=== PATIENT | male | born 1955 | race Caucasian/White ===

== ENCOUNTER → 2016-09-29 | Outpatient (CLI) | payer OTHER ==
[~2016-09-29] MED LIST: AMLO-114 PO; ATOR-22 PO; BEET ROOT PO; BUPR200T2 PO; CLON0.3T PO; CYCL10TA6 PO; DOCU-94 PO; GLUCTAB7 PO; HYDR-4313 PO; LABE1TAB28 PO; LISI20TA3 PO; MELA1TAB5 PO; MULT-506 PO; POTA1TAB PO; RED RICE YEAST PO; TADA20TA PO; TRAM-10 PO; VITAMIN D3 PO; [UNRECOGNIZED DRUG - CODE] PO
[2016-09-29 16:44] LABS: BASO % 0.1 %; BASO ABS # 0.01 K/uL (0-0.2); COMPLETE YES; EOS % 3.1 %; HEMATOCRIT 42.4 % (42-52); IG% 0.1 %; LYMPH ABS # 1.84 K/uL (1.2-3.4); MEAN CELL VOLUME 85.1 fL (80-100); MEAN CORPUSCULAR HEMOGLOBIN 29.3 pg (25-34); MEAN CORPUSCULAR HGB CONC 34.4 g/dl (32-36); MEAN PLATELET VOLUME 10.6 fL (7.4-10.4); MONO % 9.3 %; NEUT % 65.4 %; PLATELET COUNT 185 K/uL (130-400); RED BLOOD COUNT 4.98 M/uL (4.7-6.1); WHITE BLOOD COUNT 8.38 K/uL (4.8-10.8)
[2016-09-29 17:01] LABS: ALT/SGPT 44 U/L (12-78); AST/SGOT 24 U/L (15-37); BLOOD UREA NITROGEN 20 mg/dl (7-18); BUN/CREATININE RATIO 20.1 (10-20); CALCIUM 9.3 mg/dl (8.5-10.1); CARBON DIOXIDE 29 mmol/L (21-32); CHLORIDE 108 mmol/L (98-107); CHOLESTEROL 167 mg/dl (0-200); GLUCOSE 88 mg/dl (70-99); SODIUM 143 mmol/L (136-145)
[2016-09-29 17:03] LABS: ALB/GLOB RATIO 1.4 (0.9-2); ALKALINE PHOSPHATASE 54 U/L (45-117); CHOLESTEROL/HDL RATIO 3.3; HDL CHOLESTEROL 50 mg/dl; LDL CHOLESTEROL CALCULATED 96 mg/dl; TRIGLYCERIDES 106 mg/dl (0-150); VERY LOW DENSITY LIPOPROT CALC 21 mg/dl
== END | disposition home or self-care (01) ==
LOC: C.LABBFT 12:11
PROVIDERS: ATTEND Internal Medicine
DX: Z11.59 Encounter for screening for other viral diseases (principal); E78.5 Hyperlipidemia, unspecified; I10 Essential (primary) hypertension

== ENCOUNTER → 2017-01-19 | Outpatient (CLI) | payer OTHER ==
[~2017-01-19] VITALS: Ht 180.3 cm; Wt 127.4 kg
[2017-01-19 14:03] VITALS: BP 169/99; PULSE 80; Ht 180.3 cm; Wt 127.4 kg
== END | disposition home or self-care (01) ==
LOC: C.NEUR 12:55
PROVIDERS: ATTEND Physician Assistant
DX: G47.33 Obstructive sleep apnea (adult) (pediatric) (principal)

== ENCOUNTER → 2017-01-30 | Outpatient (CLI) | payer OTHER ==
--- NOTE | 2017-02-05 16:42 | POLYSOMNOGRAPH REPORT ---
SLEEP STUDY CLINICAL DATA: A 61-year-old male with BMI of [address] Reyna and Dr[address] Lilliam Arzola with a history of severe sleep apnea dating back to 1997. He was on BIPAP 06/01 until 18 months ago. At that time, his machine began to malfunction and he discontinued use. On the evening of 01/31/2017, a home sleep apnea test was performed using a [place] type III monitor. RECORDING RESULTS: Total recording time was 10 hours. The patient's monitoring time and estimated sleep time was 7.4 hours. RESPIRATORY DATA: Severe sleep apnea was documented. The SANIA was 45. There were 189 obstructive and 8 mixed apneic episodes. There were 138 hypopneic episodes. The longest respiratory event was 149 seconds. OXIMETRY DATA: Significant nocturnal hypoxemia was seen. Oxygen bette was 71%. Mean saturation was 88%. Time below 89% was 218 minutes. HEART RATE DATA: Heart rates ranged from 51-60 beats per minute. SNORING DATA: Snoring was recorded throughout the night. IMPRESSION: Severe obstructive sleep apnea with severe nocturnal hypoxemia with an respiratory event index of 45 with an oxygen bette of 71%. RECOMMENDATIONS: The patient should be considered for a repeat sleep study with CPAP/BiPAP. Reinstitution of BiPAP at his previous settings could also be considered. JOYD
== END | disposition home or self-care (01) ==
LOC: C.NEUR 10:45
PROVIDERS: ATTEND Physician Assistant
DX: G47.33 Obstructive sleep apnea (adult) (pediatric) (principal)

== ENCOUNTER → 2017-02-12 | Outpatient (CLI) | payer OTHER ==
[2017-02-12 13:17] LABS: CHOLESTEROL/HDL RATIO 2.7
== END | disposition home or self-care (01) ==
LOC: C.LABBFT 07:58
PROVIDERS: ATTEND Internal Medicine
DX: E78.5 Hyperlipidemia, unspecified (principal)

== ENCOUNTER 2017-02-13 09:43 | Emergency (ER) | payer OTHER ==
[2017-02-13] VITALS (13 sets, daily range): BP systolic 127–207; BP diastolic 77–125; PULSE 79–89; TEMP 36.4; O2SAT 93–99; Ht 177.8 cm; Wt 126.5 kg
[~2017-02-13] VITALS: Ht 177.8 cm; Wt 126.5 kg
[~2017-02-13 09:43] MED LIST changes: -AMLO-114 PO; -ATOR-22 PO; -BUPR200T2 PO; -CLON0.3T PO; -CYCL10TA6 PO; -HYDR-4313 PO; -LABE1TAB28 PO; -LISI20TA3 PO; -MULT-506 PO; -TADA20TA PO; -TRAM-10 PO
[2017-02-13] MEDS ORDERED: HYDR-4313 PO (10:19)
[2017-02-13] MEDS ORDERED: ATOR-22 PO (10:19)
--- NOTE | 2017-02-13 10:34 | DIAGNOSTIC IMAGING REPORT ---
RIGHT SHOULDER 2 VIEWS CLINICAL HISTORY: Right shoulder injury. FINDINGS: 2 portable views of the right shoulder are obtained. No prior studies are available for comparison at the time of dictation. The skeletal structures appear osteopenic. There is anterior shoulder dislocation. No definite fracture is seen. Productive degenerative change is identified at the acromioclavicular joint. The overlying soft tissues are within normal limits. The visualized right lung parenchyma appears clear. There is atherosclerotic calcification of the thoracic aorta. IMPRESSION: 1. Findings are consistent with anterior shoulder dislocation. 2. No definite fracture is seen. Electronically signed by: David Mccann M.D. 02/13/2017 10:33 AM Dictated Date/Time: 02/13/2017 10:32 AM
[2017-02-13] MEDS ORDERED: FENTANYL CITRATE INJ 50 MCG/1 ML 2 ML VIAL ONE (10:45)
[2017-02-13] MEDS ORDERED: PROPOFOL IV EMULSION 10 MG/ML 20 ML VIAL IV ONE (11:03)
[2017-02-13] MEDS ORDERED: PROPOFOL IV EMULSION 10 MG/ML 20 ML VIAL IV PRN (11:15)
--- NOTE | 2017-02-13 11:48 | EMERGENCY ROOM VISIT NOTE ---
ED Visit Note 61-year-old male with right anterior shoulder dislocation. I reduced the shoulder while Dr. Bingham administered the sedation. The shoulder was reduced gently with traction/countertraction. X-ray was obtained following the procedure to assure proper relocation.
--- NOTE | 2017-02-13 12:05 | DIAGNOSTIC IMAGING REPORT ---
RIGHT SHOULDER 2 VIEWS CLINICAL HISTORY: Reduction of right shoulder dislocation. FINDINGS: 2 portable views of the right shoulder are compared to study performed earlier the same day 02/13/2017. The skeletal structures appear osteopenic. There has been successful reduction of the dislocated right shoulder. No definite fracture is seen. Productive degenerative change is again noted at the acromioclavicular joint. The overlying soft tissues are within normal limits. The visualized right lung parenchyma appears clear. There is atherosclerotic calcification of the thoracic aorta. IMPRESSION: 1. There has been successful reduction of the right shoulder dislocation. 2. No fracture is identified. Electronically signed by: David Mccann M.D. 02/13/2017 12:04 PM Dictated Date/Time: 02/13/2017 12:02 PM
[2017-02-13] MEDS ORDERED: FENTANYL CITRATE INJ 50 MCG/1 ML 2 ML VIAL IV STA (12:58)
[2017-02-13] MEDS ORDERED: BUPR200T2 PO (13:54)
[2017-02-13] MEDS ORDERED: TRAM-10 PO (13:54)
[2017-02-13] MEDS ORDERED: LABE1TAB28 PO (13:54)
[2017-02-13] MEDS ORDERED: CLON0.3T PO (13:54)
[2017-02-13] MEDS ORDERED: AMLO-114 PO (13:54)
[2017-02-13] MEDS ORDERED: MULT-506 PO (13:54)
[2017-02-13] MEDS ORDERED: LISI20TA3 PO (13:54)
[2017-02-13] MEDS ORDERED: TADA20TA PO (13:54)
[2017-02-13] MEDS ORDERED: CYCL10TA6 PO (13:54)
--- NOTE | 2017-02-13 15:27 | EMERGENCY ROOM VISIT NOTE ---
Pre-Mod Sedation Assessment General Date of Moderate Sedation: Feb 13, 2017. Vital Signs: Vital Signs Past 12 Hours Date Time Temp Pulse Resp B/P (MAP) Pulse Ox O2 Delivery O2 Flow Rate FiO2 02/13/17 13:09 89 20 127/77 93 02/13/17 12:25 80 18 137/84 93 Room Air 02/13/17 12:20 82 18 135/90 93 Room Air 02/13/17 12:15 82 15 145/87 93 Room Air 02/13/17 12:10 80 20 142/91 94 Room Air 02/13/17 12:05 82 21 145/87 94 Room Air 02/13/17 12:00 81 22 142/87 93 Room Air 02/13/17 11:55 81 20 150/90 95 Room Air 02/13/17 11:50 79 14 157/99 99 Non-Rebreather 15.0 02/13/17 11:45 82 12 160/104 99 Non-Rebreather 15.0 02/13/17 11:40 88 16 172/125 99 Non-Rebreather 15.0 02/13/17 11:17 85 24 207/122 96 Non-Rebreather 15.0 02/13/17 11:16 86 02/13/17 09:45 36.4 81 20 199/114 95 Room Air Review Cardiovascular: regular rate, rhythm, no edema Abdomen: normal bowel sounds, non tender, soft Lungs: chest non-tender, lungs clear, normal breath sounds Airway Class: II Pre-Sedation Airway Assessment Oral Cavity: Chipped Teeth, WNL Able to Visualize Vocal Cords: No Short Thick Neck: No Hx of Sleep Apnea: Yes Smoking Status: Former Smoker Mallampati Classification: Class II (Sft palate,uvula,fauces visib.) ASA Classification: Class II Procedure Planning Contraindications-for Mod Sed: None Yes Notes The planned sedation has been discussed with the patient and consent obtained. I have identified the patient, determined the appropriateness of sedation and have assessed the patient immediately prior to the procedure. All medicine(s) and interventions are by my order.
--- NOTE | 2017-02-13 15:28 | EMERGENCY ROOM VISIT NOTE ---
Post-Moderate Sedation Plan General Date of Moderate Sedation Feb 13, 2017. Vital Signs: Vital Signs Past 12 Hours Date Time Temp Pulse Resp B/P (MAP) Pulse Ox O2 Delivery O2 Flow Rate FiO2 02/13/17 13:09 89 20 127/77 93 02/13/17 12:25 80 18 137/84 93 Room Air 02/13/17 12:20 82 18 135/90 93 Room Air 02/13/17 12:15 82 15 145/87 93 Room Air 02/13/17 12:10 80 20 142/91 94 Room Air 02/13/17 12:05 82 21 145/87 94 Room Air 02/13/17 12:00 81 22 142/87 93 Room Air 02/13/17 11:55 81 20 150/90 95 Room Air 02/13/17 11:50 79 14 157/99 99 Non-Rebreather 15.0 02/13/17 11:45 82 12 160/104 99 Non-Rebreather 15.0 02/13/17 11:40 88 16 172/125 99 Non-Rebreather 15.0 02/13/17 11:17 85 24 207/122 96 Non-Rebreather 15.0 02/13/17 11:16 86 02/13/17 09:45 36.4 81 20 199/114 95 Room Air Review - Discharge Plan Post Moderate Sedation Plan: On clinical assessment, the patient appears to have tolerated the conscious sedation without complications. He was able to cough up without difficulty, smile and move all extremities. Sedation lasted for just over 10 minutes. Patient is recovering as anticipated. Patient will continue to be monitored by nursing and may be discharged when conscious sedation discharge criteria are met.
--- NOTE | 2017-02-13 15:36 | EMERGENCY ROOM VISIT NOTE ---
History Report prepared by Willyibeva: Sreedhar Fairchild Under the Supervision of: Dr. French Bingham D.O. First contact with patient: 10:17 Chief Complaint: SHOULDER PAIN Stated Complaint: FALL/SHOULDER PAIN History of Present Illness The patient is a 61 year old male who presents to the Emergency Room with complaints of constant right shoulder pain s/p fall occurring shortly prior to arrival. The patient states that he fell onto his right shoulder while walking through the kitchen. He has a history of left sided deficit s/p CVA and states that he occasionally falls as a result. He states that he tried to stand up, and felt that his shoulder may be dislocated. The patient is not on any blood thinners. He did not hit his head or lose consciousness. He notes that he fell onto his right knee as well, but denies any knee pain. He has no neck pain. Patient has no other complaints. Source of History: patient Onset: Shortly prior to arrival Position: shoulder (right) Timing: constant Associated Symptoms: No LOC Review of Systems See HPI for pertinent positives & negatives. A total of 10 systems reviewed and were otherwise negative. Past Medical & Surgical Medical Problems: (1) CVA (cerebral vascular accident) (2) Left-sided sensory deficit present Family History No pertinent family history stated. Social History Smoking Status: Former Smoker Current/Historical Medications Scheduled Amlodipine (Norvasc), 10 MG PO QAM Atorvastatin (Lipitor), 20 MG PO QPM Bupropion (Wellbutrin Sr), 200 MG PO BID Clonidine Hcl (Catapres), 0.3 MG PO BID Labetalol (Normodyne), 200 MG PO BID Lisinopril (Prinivil), 20 MG PO BID Multivitamin (Multivitamin), 1 TAB PO HS Tadalafil (Cialis), 20 MG PO UD Scheduled PRN Acetaminophen/Hydrocodone (Hydrocodone/Acetaminophen 5-325 mg), 1-2 TABS PO Q6H PRN for Pain Cyclobenzaprine Hcl (Flexeril), 10 MG PO TID PRN for Pain Tramadol (Ultram), 50 MG PO Q8H PRN for Pain Allergies Coded Allergies: Mustard (Verified Allergy, Unknown, ?, 02/13/17) NO KNOWN DRUG ALLERGIES (Verified Allergy, Unknown, ., 04/05/16) Uncoded Allergies: HAY FEVER,WOOL,MUSTARD (Allergy, Unknown, 2/13/03) Physical Exam Vital Signs Date Time Temp Pulse Resp B/P (MAP) Pulse Ox O2 Delivery O2 Flow Rate FiO2 02/13/17 13:09 89 20 127/77 93 02/13/17 12:25 80 18 137/84 93 Room Air 02/13/17 12:20 82 18 135/90 93 Room Air 02/13/17 12:15 82 15 145/87 93 Room Air 02/13/17 12:10 80 20 142/91 94 Room Air 02/13/17 12:05 82 21 145/87 94 Room Air 02/13/17 12:00 81 22 142/87 93 Room Air 02/13/17 11:55 81 20 150/90 95 Room Air 02/13/17 11:50 79 14 157/99 99 Non-Rebreather 15.0 02/13/17 11:45 82 12 160/104 99 Non-Rebreather 15.0 02/13/17 11:40 88 16 172/125 99 Non-Rebreather 15.0 02/13/17 11:17 85 24 207/122 96 Non-Rebreather 15.0 02/13/17 11:16 86 02/13/17 09:45 36.4 81 20 199/114 95 Room Air Physical Exam GENERAL: Obese, sitting up in bed, disheveled. Holding RUE with left arm. HEAD: normal cephalic, atraumatic EYE EXAM: normal conjunctiva, PERRL and EOM's intact OROPHARYNX: no exudate, no erythema, lips, buccal mucosa, and tongue normal and mucous membranes are moist EARS: TMs clear b/l NECK: supple, no nuchal rigidity, no adenopathy, non-tender CHEST: stable to compression anteriorly and posteriorly LUNGS: clear to auscultation. Normal chest wall mechanics HEART: no murmurs, S1 normal and S2 normal ABDOMEN: abdomen soft, non-tender, normo-active bowel sounds, no masses, no rebound or guarding. PELVIS: stable to compression anteriorly and posteriorly BACK: Back is symmetrical on inspection and there is no deformity, no midline tenderness, no CVA tenderness. UPPER EXTREMITIES: Tenderness to palpation of the right humeral head. Able to grasp. Abduction, flection and extension of the right wrist intact. LOWER EXTREMITIES: full active and passive range of motion of all joints without tenderness to palpation. Abrasions to the bilateral knees. NEURO EXAM: Normal sensorium, cranial nerves II-XII grossly intact, normal speech, no gross weakness of legs. GCS: 15. Medical Decision & Procedures ER Provider Diagnostic Interpretation: Radiology results as stated below per my review and the radiologist's interpretation: RIGHT SHOULDER 2 VIEWS FINDINGS: 2 portable views of the right shoulder are obtained. No prior studies are available for comparison at the time of dictation. The skeletal structures appear osteopenic. There is anterior shoulder dislocation. No definite fracture is seen. Productive degenerative change is identified at the acromioclavicular joint. The overlying soft tissues are within normal limits. The visualized right lung parenchyma appears clear. There is atherosclerotic calcification of the thoracic aorta. IMPRESSION: 1. Findings are consistent with anterior shoulder dislocation. 2. No definite fracture is seen. Electronically signed by: David Mccann M.D. RIGHT SHOULDER 2 VIEWS CLINICAL HISTORY: Reduction of right shoulder dislocation. FINDINGS: 2 portable views of the right shoulder are compared to study performed earlier the same day 02/13/2017. The skeletal structures appear osteopenic. There has been successful reduction of the dislocated right shoulder. No definite fracture is seen. Productive degenerative change is again noted at the acromioclavicular joint. The overlying soft tissues are within normal limits. The visualized right lung parenchyma appears clear. There is atherosclerotic calcification of the thoracic aorta. IMPRESSION: 1. There has been successful reduction of the right shoulder dislocation. 2. No fracture is identified. Electronically signed by: David Mccann M.D. Medications Administered Medications (Trade) Dose Ordered Sig/Seferino Route Start Time Stop Time Status Last Admin Dose Admin Fentanyl Citrate (Fentanyl Inj) 100 mcg STK-MED ONCE .ROUTE 02/13/17 10:45 02/13/17 10:46 DC 02/13/17 11:07 75 MCG Propofol (Diprivan Iv Emulsion 20ml Vial) 200 mg STK-MED ONCE IV 02/13/17 11:03 02/13/17 11:04 DC 02/13/17 11:40 50 MG Procedure Procedural Sedation Indication: right shoulder dislocation. Total time: 10 minutes. Written consent was obtained after the risks and benefits were explained to the patient, including, but not limited to aspiration, allergic reaction, breathing difficulties, cardiac complications, vomiting, pain, event recall, bleeding, and /or infection. Pre-sedation examination and paperwork completed. The patient was on 100% oxygen via NRB prior to the procedure. Continous end tidal CO2 monitoring, pulse oximetry, and cardiac monitoring were utilized. Suction, airway equipment, medications, respiratory equipment, and appropriate personnel were prepared prior to the initiation of the procedure. A time out was taken. Sedation was achieved utilizing 50 mg of propofol. After I observed the patient had reached the appropriate level of sedation the main procedure was performed without complication. Sedation was discontinued and the monitoring continued. The patient recovered quickly from the effects of the medication without complication or adverse event. ED Course ED COURSE: Vital signs were reviewed and showed hypertension The patients medical record was reviewed The above diagnostic studies were performed and reviewed. ED treatments and interventions as stated above. 1028: The patient was evaluated in room B4B. A complete history and physical examination was performed. 1048: I unsuccessfully attempted to reduce the patients shoulder dislocation. 1100: I discussed sedation for shoulder reduction with the patient. He verbalized agreement and understanding. Last time he drank was 0700 which was water. The last time he ate was 2200 last night. 1135: I performed conscious sedation while Dr. Tran reduced the patients shoulder. 1245: Upon reevaluation, the patient is resting. He feels back to baseline. He states that he needs his arm for balance, so he declined a shoulder immobilizer , but agrees to try a sling. I discussed my findings with the patient and he understands and agrees with the treatment plan. Based on the patients age, coexisting illnesses, exam and lab findings the decision to treat as an outpatient was made. The patient remained stable while under my care. The patient appeared well at the time of discharge. Medical Decision Differential diagnoses include major intracranial, cervical, spinal, thoracic, abdominal, pelvic and neurologic injury. Fracture, contusion, sprain, strain, laceration, abrasions included as well. Patient is a 61-year-old male status post mechanical fall likely secondary to a stroke into the doorway where he hit his right shoulder. He is completely neurologically intact. X-ray showed a dislocation. Denied any head trauma. No blood thinners. Attempted to initially reduce the shoulder without sedation but was unsuccessful. Patient has not eaten since 10 PM last night. He drank a little water at 7 AM. No previous trouble with propofol. Patient was sedated by myself and reduction was performed by Dr. Tran. Repeat x-rays show no acute fractures. Patient was reassessed and had no complaints. I did initially recommend x-rays of the knees but he declined. Initially was going to place in shoulder immobilizer but he needs his right arm for stabilization and consequently he was just given a shoulder sling. He was given referral to orthopedics. He was able to drink water prior to discharge. He was instructed not to drive for the remainder of the day. He has no new complaints. He was discharged follow-up with PCP and orthopedics. Discussed with Pt concerning signs and symptoms to watch out for. Pt was instructed to follow up with their PCP and discussed with the patient their option to return to the ED at anytime for persistent or worsening symptoms. The appropriate anticipatory guidance and out-patient management, including indications for return to the emergency department, were explained at length to the patient and understood. Medication Reconcilliation Current Medication List: was personally reviewed by me Blood Pressure Screening Patient's blood pressure: Elevated blood pressure Blood pressure disposition: Referred to PCP Impression Primary Impression: Shoulder dislocation Additional Impression: Fall Scribe Attestation The scribe's documentation has been prepared under my direction and personally reviewed by me in its entirety. I confirm that the note above accurately reflects all work, treatment, procedures, and medical decision making performed by me. Departure Information Dispostion Home / Self-Care Referrals Zeus Reyna M.D. (PCP) Forms HOME CARE DOCUMENTATION FORM, IMPORTANT VISIT INFORMATION Patient Instructions ED Dislocation Shoulder Redu, ED Sling, My [facility] Additional Instructions Please follow up with your primary care doctor or if you are a student, [facility] with in the next 24 hours. Any worsening of your symptoms, please return to the ED immediately. This includes any fevers greater than 100.4, worsening pain, chest pain, shortness breath, persistent nausea, vomiting, unable to eat or drink, or any other concerning signs or symptoms from your standpoint. You were given medications during this visit that will inhibit your ability to drive, operate machinery and work. Please do NOT drive, operate machinery, drink alcohol or work for the next 12hrs. You were found to have a blood pressure greater than 120 systolic over 90 diastolic. Due to the new Medicare guidelines, we are now recommending that you follow up with your primary care doctor in regards to this elevated blood pressure. Please follow up with orthopedics within the next week. Problem Qualifiers Primary Impression: Shoulder dislocation Encounter type: initial encounter Laterality: right Qualified Codes: S43.004A - Unspecified dislocation of right shoulder joint, initial encounter Additional Impression: Fall Encounter type: initial encounter Qualified Codes: W19.XXXA - Unspecified fall, initial encounter
== END 2017-02-13 13:18 | disposition home or self-care (01) ==
LOC: EDBD 09:43 → C.EDB 09:44 → C.ED 13:18
DX: S43.014A Anterior dislocation of right humerus, initial encounter (principal); W19.XXXA Unspecified fall, initial encounter; Y92.000 Kitchen of unspecified non-institutional (private) residence as the place of occurrence of the external cause; Z86.73 Personal history of transient ischemic attack (TIA), and cerebral infarction without residual deficits; Z87.891 Personal history of nicotine dependence; Z79.899 Other long term (current) drug therapy

== ENCOUNTER → 2017-02-27 | Outpatient (CLI) | payer OTHER ==
[~2017-02-27] VITALS: Ht 179.1 cm; Wt 123.8 kg
[~2017-02-27] MED LIST changes: +AMLO-114 PO; +ATOR-22 PO; -BEET ROOT PO; +BUPR200T2 PO; +CLON0.3T PO; +CYCL10TA6 PO; -DOCU-94 PO; -GLUCTAB7 PO; +HYDR-4313 PO; +LABE1TAB28 PO; +LISI20TA3 PO; -MELA1TAB5 PO; +MULT-506 PO; -POTA1TAB PO; -RED RICE YEAST PO; +TADA20TA PO; +TRAM-10 PO; -VITAMIN D3 PO; -[UNRECOGNIZED DRUG - CODE] PO
[2017-02-27 12:02] VITALS: BP 138/90; PULSE 91; Ht 179.1 cm; Wt 123.8 kg
== END | disposition home or self-care (01) ==
LOC: C.NEUR 11:52
PROVIDERS: ATTEND Internal Medicine Pulmonary Disease
DX: G47.33 Obstructive sleep apnea (adult) (pediatric) (principal); I10 Essential (primary) hypertension

== ENCOUNTER → 2017-03-01 | Outpatient (CLI) | payer OTHER ==
--- NOTE | 2017-03-02 05:48 | PAP/PSG TECHNICIAN REPORT ---
[facility] Line Service Person Polysomnogram Report Study name: None Report date: 03/02/2017 Study date: 03/01/2017 Referring Physician: Lilliam Buck PA-C, PA-C Name: ANSHUL JOSHI Interpreting Physician: Anshul Yu M.D. Date of : 1955 Line Service Person: Fabiana Marie [facility]. Sex: Male Age: 61 StudyType: PSG PAP Weight: 272 lbs Height: 61 years, Height 5' 10.5" Neck Circum:18in. BMI: 38.47 Medications: Amlodipine Besylate 10mg, Atorvastatin 20mg, Bupropion HCl 200mg, Clonidine HCl 0.3mg, Cyclobenzaprine HCl 10mg, Hydrocodone-Acetaminophen 5-325mg, Labetalol HCl 200mg, Lisinopril 20mg, Sildenafil Citrate 20mg, Tramadol HCL 50mg Patient History Study started on room air with bipap +8/4CMH2O in room #8. 61 yr old male here tonight for a new bipap study. He was diagnosed wit SHREYA in 1996 and used bipap up until 2014 when his machine malfunctioned. He has a HST that had an AHI of 45 and showed hypoxemia. His ESS=6/24. Neck circ=18inches Parameters Monitored NPSG: E1-M2, E2-M1, Fp1-M2, Fp2-M1, F3-M2, F4-M2, F4-M1, C3-M2, C4-M2, C4-M1, O1-M2, O2-M2, O2-M1, T3-M2, T4-M1, P3-M2, P4-M1, CHIN1, CHIN2, HR, EKG, Legs, PFLOW, SNOR, FLOW, CFLOW, Tidal Volume, THOR, ABDO, SpO2, PLTH, CPRESS, ETCO2 Wave, ETCO2, pH Sleep Architecture Sleep Stages Time at Lights Off 10:01:57 PM STAGES Time (min.) TST (%) Time at Lights On 5:41:27 AM Wake 150.0 -- Total Recording Time (TRT) 459.50 min. N1 30.0 10 Total Sleep Period (TSP) 414.0 min. N2 199.5 64 Total Sleep Time (TST) 309.5min. N3 31.0 10 Awake Time 150.0 min. REM 49.0 16 Wake after Sleep Onset 104.5 min. Sleep Efficiency (SE) 67 % Sleep Onset Latency (CHANTELLE) 45.5 min. Number of Stage 1 Shifts None Awakenings 27 Stage Changes 108 Number of REM periods 6 REM 49.0 16 REM Latency 64.0 min. NREM 260.5 84 Body Position Analysis Supine Right Left Side Prone Vertical Total Sleep Time (min.) 221.4 0.0 173.3 173.26 0.0 0.0 Total Sleep Time (%) 44% 0% 56% 56 0% N/A% Total Sleep Time REM (min.) 7.0 0.0 42.0 None 0.0 0.0 Total Sleep Time NREM (min.) 129.2 0.0 131.3 None 0.0 0.0 Intermittent Wake (min.) 85.2 0.0 64.8 None 0.0 0.0 Total Sleep Period (%) 47% None None None None None Arousals Myoclonus (PLM) * Events Count Index Events Count Index Spontaneous 13 3 Events Awake (PLMW) 308 123.2 Respiratory 0 0.2 Events Asleep w/ Arousal (PLMA) 19 3.7 PLM 18 4 Events Asleep w/o Arousal (PLMS) 433 83.9 Snoring 1 0 Total Asleep 452 87.6 Total 32 6 Total 760 99 Respiratory Analysis * CA OA MA CH H RERA Total Count 0 1 0 0 12 0 13 Index 0.0 0.2 0.0 0 2.3 0 2.5 Mean Duration 0.0 19.5 0.0 0.00 22.7 0.0 22.5 Longest Duration 0.0 19.5 0.0 0.00 0.0 0.0 48.0 Respiratory Event Summary Total Supine ~Supine Right Left Prone REM NREM Apneas Count 1 0 1 N/A 1 N/A 0 1 Index 0.2 0 0 N/A 0.3 N/A 0 0 Hypopneas (4% Desat) Count 12 2 10 N/A 10 N/A 4 8 Index 2.3 0.9 3 N/A 3.5 N/A 4.9 1.8 Apneas & All Hypopneas Count 13 2 11 N/A 11 N/A 4 9 Index 2.5 1 4 N/A 4 N/A 4.9 2.1 Respiratory Events (Sanitary Chemist+All Hyp+RERA) Count 13 2 11 N/A 11 N/A 4 9 Index 2.5 1 4 N/A 3.8 N/A 4.9 2.1 Respiratory Related Arousal Count 0 2 0 N/A 0 N/A 0 1 Index 0.2 0 0 N/A 0 N/A 0 0 Snoring Analysis Supine Right Left Prone REM NREM Total Snore duration 14.5 min Snores count 66 N/A 696 N/A 111 651 762 Snore mean duration 1.1 Sec Snores index 29 N/A 241 N/A 135.9 149.9 147.7 TST with snoring (%) 4.7% Desaturation Event Summary: Minimum %SpO2 Event Count Mean/Min/Max Duration(sec.) Desaturation Index % Time In Bed > 90 54 26.5 / 11.0 / 56.3 13.7 53.2 86 - 90 30 21.9 / 5.3 / 54.8 9.8 41.4 81 - 85 4 20.8 / 4.0 / 51.0 10.1 5.3 76 - 80 0 N/A 0.0 0.0 71 - 75 0 N/A 0.0 0.0 66 - 70 0 N/A 0.0 0.0 61 - 65 0 N/A 0.0 0.0 56 - 60 0 N/A 0.0 0.0 51 - 55 0 N/A 0.0 0.0 < 50 0 N/A 0.0 0.0 Total REM NREM Awake <50% 0.0 min. 0.0 min. 0.0 min. 0.0 min. 51 - 60% 0.0 min. 0.0 min. 0.0 min. 0.0 min. 61 - 70% 0.0 min. 0.0 min. 0.0 min. 0.0 min. 71 - 80% 0.2 min. 0.0 min. 0.0 min. 0.2 min. 81 - 90% 206.9 min. 12.0 min. 123.8 min. 71.0 min. 91 - 100% 235.8 min. 37.0 min. 134.3 min. 64.5 min. Average 91 92 90 90 Minimum SpO2 75 84 82 75 Desaturation Event Index 9.8 9.8 5.8 17.2 # Desat. Events below 89% 44 3 17 24 Time(%) with Saturation below 89% 23.1 1.8 13.6 7.6 Time(min.) with Saturation below 89% 102.1 8.1 60.2 33.8 Time (mins) REM (mins) NREM (mins) % of TST SpO2 Below 90% 28 7 N21 32.4 SpO2 Below 88% 8 0 0 14 Heart Rate Analysis Min (bpm) Max (bpm) Average (bpm) Awake 42 173 68 NREM 35 127 61 REM 55 77 63 Overall 35 127 61 Supplemental O2 Values Minimum O2 level: None Value Start Time End Time Line Service Person Comments Mr. Joshi slept in the left and supine positions. No cardiac arrhythmia noted. PLM's were noted. No bruxism noted. PAP initiated at an IPAP of +8CMH2O and an EPAP of +4 CMH2O up-titrated to an optimal level of: IPAP +11 CMH2O, EPAP + 5 CMH20 with 1 liter of oxygen added at 5:20am. oxygen saturations were under 89% for 59.9 minutes and his AHI on bipap +11/5 was 2.7 for 123.2minutes. A Mirage FX nasal mask with a standard cushion by [employer] was used during titration. He awoke to use the restroom once during the night. He stated that he slept about the same as when at home. The final report will be interpreted and signed by a sleep physician. The completed physician report will then be placed in the patient medical record. Therapy Event: Therapy (cm H20) 01/26 02/26 03/28 04/29 Total Time at Pressure (min.) 182.5 1.1 130.7 145.2 TST at Pressure (min.) 96.0 1.1 102.2 110.2 # Periods 1 1 1 1 Sleep Onset (min.) 45.5 0.0 0.0 0.0 REM Onset (min.) 109.5 0.0 0.0 22.2 Sleep Efficiency % 52 100 78 75 Wakefulness (%) 47.4 0.0 21.8 24.1 Wakefulness (min.) 86.5 0.0 28.5 35.0 NREM 1 (%) 5.2 0.0 5.4 9.3 NREM 1 (min.) 9.5 0.0 7.0 13.5 NREM 2 (%) 30.4 0.0 47.3 56.6 NREM 2 (min.) 55.5 0.0 61.8 82.2 NREM 3 (%) 4.4 0.0 14.9 2.4 NREM 3 (min.) 8.0 0.0 19.5 3.5 REM (%) 12.6 100.0 10.7 7.6 REM (min.) 23.0 1.1 13.9 11.0 # Arousals 6 0 9 17 Arousal Index 3.8 0.0 5.3 9.3 # Snore 112 6 381 263 Snore Index 70.0 327.3 223.7 143.2 AHI 1.3 54.6 3.5 2.2 AHI Supine 0.0 N/A 1.5 1.3 AHI Non-Supine 2.7 54.6 4.8 2.8 NREM AHI 0.0 N/A 3.4 2.4 REM AHI 5.2 54.6 4.3 0.0 RDI 1.3 54.6 3.5 2.2 # Obstructive 0 0 1 0 # Central Ap 0 0 0 0 # Mixed 0 0 0 0 # Hypopneas 2 1 5 4 RERAS 0 0 0 0 Total Respiratory Events 2 1 6 4 Time Below SpO2 89.00% (min.) 0.2 0.0 4.6 63.5 Mean NREM SpO2 (%) 92 N/A 92 88 Mean REM SpO2 (%) 93 93 94 87 Mean Sleep SpO2 (%) 92 93 92 88 Min NREM SpO2 (%) 88 N/A 83 82 Min REM SpO2 (%) 90 90 90 84 Position Supine (min.) 52.0 0.0 39.4 44.8 Position Non-supine (min.) 44.0 1.1 62.8 65.4 LM Index Sleep 70.0 54.6 92.2 99.1 LM Index NREM 87.1 N/A 106.7 110.0 LM Index REM 15.7 54.6 0.0 0.0 Mean Heart Rate (bpm) 62 63 59 62 Min Heart Rate (bpm) 55 59 35 55
--- NOTE | 2017-03-03 13:15 | POLYSOMNOGRAPH REPORT ---
CLINICAL DATA: A 61-year-old male with BMI of 38.5 referred by Lilliam Buck for a CPAP study. He had sleep apnea diagnosed in 1996 and used BiPAP until 2014 when his machine malfunctioned. He had a home sleep apnea test which showed severe sleep apnea with an SANIA of 45 with hypoxemia. He was started on BiPAP during this study. SLEEP ARCHITECTURE: Total recording time was 459.5 minutes. Total sleep period was 414 minutes. Total sleep time was 309.5 minutes divided between 268.5 minutes of non-REM sleep and 49 minutes of REM sleep. Sleep onset latency was delayed at 45.5 minutes. REM latency was 65 minutes. Sleep efficiency was 67%. Wake after sleep onset was 104.5 minutes. Sleep consisted of stage N1 10%, stage N2 64%, stage N3 10% and REM 16%. AROUSAL DATA: Thirty-two arousals were recorded for an index of 6 per hour. PLM DATA: Severely elevated limb movements during sleep were noted. There were 452 limb movements during sleep noted for an index of 87.6 per hour with arousal index of 3.7 per hour. RESPIRATORY DATA: The AHI was 2.5. There was 1 obstructive apneic episode 19.5 seconds in duration. There were 12 hypopneic episodes with the mean duration of 22.7 seconds. OXIMETRY DATA: Nocturnal hypoxemia was seen. Oxygen bette was 82% during non-REM sleep. The mean saturation was 91%. Time below 88% was 8 minutes. EKG: Heart rates ranged from 35 to 127 beats per minute. No arrhythmias were noted. CONFERENCE COORDINATOR'S COMMENTS AND TREATMENT SUMMARY: The patient slept in the left and supine positions. He used the Mirage FX nasal mask standard cushion by [employer]. He was started on BiPAP 8/4 and was eventually titrated up to BiPAP 11/5 with oxygen 1 liter per minute added at 5:20 a.m. After his sleep apnea was controlled, he continued to have nocturnal hypoxemia. At his final pressure setting, the patient slept for 110.2 minutes with an AHI of 2.2. IMPRESSION: Severe obstructive sleep apnea/hypopnea with nocturnal hypoxemia corrected with BiPAP 11/5, oxygen 1 liter per minute using a Mirage FX nasal mask standard cushion by [employer]. RECOMMENDATIONS: The patient should be started on BiPAP 11/5 with 1 liter of oxygen. He should be seen back in followup within 90 days to document efficacy and compliance. MTDD
== END | disposition home or self-care (01) ==
LOC: C.NEUR 21:00
PROVIDERS: ATTEND Physician Assistant Medical
DX: G47.33 Obstructive sleep apnea (adult) (pediatric) (principal)

== ENCOUNTER → 2017-10-12 | Outpatient (CLI) | payer OTHER ==
[2017-10-12 14:36] LABS: BASO % 0.1 %; BASO ABS # 0.01 K/uL (0-0.2); EOS % 4.5 %; EOS ABS # 0.37 K/uL (0-0.5); HEMATOCRIT 44.1 % (42-52); HEMOGLOBIN 14.9 g/dL (14.0-18.0); IG# 0.05 K/uL (0.00-0.02); LYMPH ABS # 2.47 K/uL (1.2-3.4); MEAN CELL VOLUME 87.7 fL (80-100); MEAN CORPUSCULAR HEMOGLOBIN 29.6 pg (25-34); MEAN CORPUSCULAR HGB CONC 33.8 g/dl (32-36); MEAN PLATELET VOLUME 9.8 fL (7.4-10.4); MONO % 6.8 %; MONO ABS # 0.56 K/uL (0.11-0.59); NEUT ABS # 4.78 K/uL (1.4-6.5); PLATELET COUNT 191 K/uL (130-400); RED CELL DISTRIBUTION WIDTH CV 13.3 % (11.5-14.5); RED CELL DISTRIBUTION WIDTH SD 42.7 fL (36.4-46.3); WHITE BLOOD COUNT 8.24 K/uL (4.8-10.8)
[2017-10-12 15:07] LABS: BLOOD UREA NITROGEN 18 mg/dl (7-18); CALCIUM 9.1 mg/dl (8.5-10.1); CARBON DIOXIDE 26 mmol/L (21-32); CREATININE 1.19 mg/dl (0.60-1.40); GLUCOSE 82 mg/dl (70-99); POTASSIUM 3.9 mmol/L (3.5-5.1); SODIUM 139 mmol/L (136-145)
== END | disposition home or self-care (01) ==
LOC: C.LAB1850 13:50
PROVIDERS: ATTEND Internal Medicine
DX: I10 Essential (primary) hypertension (principal); N52.9 Male erectile dysfunction, unspecified